=== PATIENT | male | born 1950 | race Caucasian/White ===

== ENCOUNTER → 2019-08-04 | Day surgery (SDC) | payer MEDICARE ==
[2019-08-02 11:07] LABS: BASOPHILS # (AUTO) 0.1 (0.0-0.1); BASOPHILS % 1.1 % (0.0-1.0); EOSINOPHILS # (AUTO) 0.3 (0.0-0.4); EOSINOPHILS % 5.1 % (0.0-6.0); HEMATOCRIT 38.7 % (38.2-49.6); HEMOGLOBIN 12.3 g/dL (14.0-18.0); LYMPHOCYTES # (AUTO) 1.9 (1.0-3.2); LYMPHOCYTES % 33.6 % (18.0-39.1); MEAN CORPUSCULAR HEMOGLOBIN 25.6 pg (28-32); MEAN CORPUSCULAR HGB CONC 31.8 g/dL (31-35); MEAN CORPUSCULAR VOLUME 80.6 fL (81-99); MONOCYTES # (AUTO) 0.5 (0.2-0.8); MONOCYTES % 8.5 % (4.4-11.3); NEUTROPHILS # (AUTO) 2.9 (2.1-6.9); NEUTROPHILS % 51.3 % (38.7-80.0); PLATELET COUNT 242 x10e3/uL (140-360); RED CELL DISTRIBUTION WIDTH 12.8 % (11.7-14.4)
--- NOTE | 2019-08-02 11:20 | Diagnostic Imaging Report ---
EXAMINATION: CHEST 2 VIEWS INDICATION: Pre-operative COMPARISON: None FINDINGS: LINES/TUBES:None LUNGS:The lungs are well-inflated. No focal consolidation or pulmonary edema. PLEURA:No pleural effusion or pneumothorax. MEDIASTINUM:The cardiomediastinal silhouette appears normal in size and shape. BONES/SOFT TISSUES:No acute osseous injury. ABDOMEN:No free air under the diaphragm. IMPRESSION: No focal pneumonia or pulmonary edema. Signed by: Onesimo Sow MD on 08/02/2019 11:17 AM
[2019-08-02 11:27] LABS: ANION GAP 11.1 mmol/L (8-16); BLOOD UREA NITROGEN 11 mg/dL (7-26); BUN/CREATININE RATIO 15 (6-25); CALCIUM 9.2 mg/dL (8.4-10.2); CARBON DIOXIDE 26 mmol/L (22-29); CHLORIDE 104 mmol/L (98-107); CREATININE, SERUM 0.75 mg/dL (0.72-1.25); EST GLOMERULAR FILTRATION RATE > 60 ML/MIN (60-); GLUCOSE 192 mg/dL (74-118); POTASSIUM 4.1 mmol/L (3.5-5.1); SODIUM 137 mmol/L (136-145)
[~2019-08-04] MED LIST: ACETAMINOPHEN/CODEINE 300MG - 30MG TAB ONE; BACITRACIN 50,000 UNIT VIAL ONE; CEFTRIAXONE SOD 1 GM/NS 50 ML 50 ML IV ONE; DEXAMETHASONE SOD PHOS INJ 4 MG/ML VIAL ONE; FENTANYL CITRATE/PF 100MCG/2 ML INJ ONE; KETOROLAC TROMETHAMINE 30 MG/ML VIAL ONE; LIDOCAINE HCL 1% LOCAL INJ 20 ML VIAL ONE; ONDANSETRON HCL INJ 2MG/ML 2ML 2 MG/ML VIAL ONE; PROPOFOL IV EMULSION 10 MG/ML 20 ML VIAL ONE; SEVOFLURANE INHAL SOLN 250 ML PEN BTL ONE
--- OUTSIDE RECORDS SUMMARY | 2019-08-04 05:37 | XMS REPORT ---
[facility] Address Unknown Phone Unavailable Care Team Providers Care Rubber Goods Inspector Tester Name Role Phone Judson CASTILLO Unavailable Unavailable Problems This patient has no known problems. Allergies, Adverse Reactions, Alerts This patient has no known allergies or adverse reactions. Medications This patient has no known medications. Results Test Description Test Time Test Comments Text Results Atomic Results Result Comments CHEST 2 VIEWS 2019-08-02 11:16:00 [place] [address] Patient Name: JIL BACA MR #: [id number] : 1950 Age/Sex: 69/M Req #: [id number] [facility] Physician: Ordered by: JOCELYNE CASTILLO MD Report #: [id number] Location: OR Room/Bed: Procedure: [id number] DX/CHEST 2 VIEWS Exam Date: 08/02/19 Exam Time: 1100 REPORT STATUS: Signed EXAMINATION: CHEST 2 VIEWS INDICATION: Pre-operative COMPARISON: None FINDINGS: LINES/TUBES:None LUNGS:The lungs are well-inflated. No focal consolidation or pulmonary edema. PLEURA:No pleural effusion or pneumothorax. MEDIASTINUM:The cardiomediastinal silhouette appears normal in size and shape. BONES/SOFT TISSUES:No acute osseous injury. ABDOMEN:No free air under the diaphragm. IMPRESSION: No focal pneumonia or pulmonary edema. Signed by: Fernanda Morgan MD on 08/02/2019 11:17 AM Dictated By: FERNANDA MORGAN MD 111 Transcribed By: SADIQ DELVALLE on 08/02/191116 COPY TO: JOCELYNE CASTILLO MD
--- NOTE | 2019-08-04 07:10 | NUR ---
SPIRITUAL CARE - Pre-Surgery Assessment: Pt in bed. Pt's at bedside. Pt reported supportive attention from family and friends. Intervention: I provided pastoral presence, hospitality, and sympathetic listening. I acquainted pt with availability of cotton ball machine tender while hospitalized. Outcome: Pt expressed appreciation for visit. No need for follow up indicated at this time. RICA Davieslain Spiritual Care Department O: [phone]
[2019-08-04 10:30] VITALS: BP 149/87
--- NOTE | 2019-08-07 11:00 | Operative Report ---
DATE OF PROCEDURE: 08/04/2019 SURGEON: Chin Cuevas MD PREOPERATIVE DIAGNOSIS: Organic erectile dysfunction. POSTOPERATIVE DIAGNOSIS: Organic erectile dysfunction. PROCEDURE PERFORMED: Placement of inflatable penile prosthesis. ANESTHESIA: General anesthesia. ESTIMATED BLOOD LOSS: Less than 100 cc. INDICATIONS: Mr. Patricia is a 69-year-old gentleman with a long history of erectile dysfunction, which has failed conservative management with intracavernosal injections, PD inhibitors and vacuum erection devices. He now presents for definitive surgical management of this problem. PROCEDURE IN DETAIL: The patient was brought into the operating room, placed in supine position and after initiation of general anesthesia he was prepped and draped in the usual sterile fashion. A Adam catheter was placed and the balloon inflated. The catheter was then clamped. A penoscrotal incision was made sharply in the midline and dissection was carried out through the layers of the penis. The left corporal body was dissected free first and a corporotomy incision was made. The corporal body was entered and dilated proximally and distally. The corporal body measured a total of 20 cm on this side. Stay stitches of 2-0 PDS were placed on both sides of the corporotomy incision. A similar procedure was performed on the right corporal body at which time another corporotomy incision was made. The patient was noted to have minimal bleeding noted from either corporal incision probably alluding to the cause of erectile dysfunction. Again, the corporal body was dilated and measured and found to be 20 cm in total length. The decision was made to place an 18 cm [employer] CX prosthesis with a 2 cm RTE on each side. This was placed into the corporal bodies without difficulty and appeared to be a good fit. The previously placed PDS stitches were then closed in a horizontal fashion. The subdartos pocket was created anteriorly in the scrotum and the pump was placed in a dependent position here without difficulty. Great care was taken to ensure that the button based anteriorly. Once this was complete, the pump was excluded from the remainder of the scrotum by closing the incision with Vicryl pursestring stitch. Great care was also taken to exclude the tubing by closing that space with similar 3-0 Vicryl suture. A horizontal incision was then made in the right groin and dissection was carried down to the layers of the fascia. A horizontal incision was made in the fascia and a pocket was created in the retropubic space. A flat reservoir was placed in this location and filled with approximately 95 cc of the sterile fluid. The tubing was allowed to exit the separate incision inferior to the wound. The fascial wound was then closed using a running Vicryl suture. Great care was taken to prevent injury to the reservoir for its tubing. The tubing from the pump was then brought up from the scrotum into the right groin using a knitting needle. The tube and reservoir were then connected using the quick connect method. The device was cycled on the field and was noted to inflate and deflate without difficulty. It was left minimally inflated. Both the penoscrotal wound and the right inguinal wound were copiously irrigated and closed in layers the skin being closed with a subcuticular stitch in both cases. Both wounds were then cleaned and dried and covered with Steri-Strips and a sterile Tegaderm dressing. Anesthesia was reversed. The patient was transferred to a bed and taken to the postanesthesia care unit in good condition. Prior to awakening, the Adam catheter was removed. MD SAMANTHA Benavidez/ROYAL /[id number]
== END | disposition home or self-care (01) ==
LOC: OR 05:30
PROVIDERS: ATTEND Urology
DX: N52.8 Other male erectile dysfunction (principal); R97.20 Elevated prostate specific antigen [PSA]; Z88.6 Allergy status to analgesic agent; Z88.2 Allergy status to sulfonamides; Z01.810 Encounter for preprocedural cardiovascular examination; Z01.812 Encounter for preprocedural laboratory examination; Z01.818 Encounter for other preprocedural examination
CPT/HCPCS: 36415; 54405; 71046; 80048; 85025; 93005; C1813; J0696; J1100; J1885; J2001; J2405; J2704; J3010